=== PATIENT | female | born 1955 | race Asian ===

== ENCOUNTER 2018-07-17 17:15 | Emergency (ER) | payer OTHER ==
[~2018-07-17] VITALS: Ht 142.2 cm; Wt 38.6 kg
--- NOTE | 2018-07-17 17:18 | NUR ---
Placed in room 02 . Placed on clinical research monitor, blood pressure machine and pulse oximeter. To gown for exam. Side rails up.
[2018-07-17 17:19] VITALS: BP_SYST 137
[2018-07-17] MEDS ORDERED: NACL 0.9% 1,000 ML IV ONE (17:33)
[2018-07-17] MEDS ORDERED: MECLIZINE HCL 25 MG TABLET (ANITVERT) PO ONE (17:45)
--- NOTE | 2018-07-17 17:52 | NUR ---
Patient transported to radiology via gurney, accompanied by rad staff.
--- NOTE | 2018-07-17 17:54 | NUR ---
ER at bedside examining patient.
[2018-07-17 17:55] LABS: RED BLOOD CELL COUNT(AUTO) 4.04 MIL/uL (4.2-6.2); WHITE BLOOD COUNT (AUTO) 4.7 K/uL (4.8-10.8)
[2018-07-17 17:56] LABS: BASOPHILS % (AUTO) 1.9 % (0.0-2.0); EOSINOPHILS % (AUTO) 3.2 % (0.0-4.0); HEMATOCRIT 37.8 % (36-48); HEMOGLOBIN 12.4 g/dL (12.0-16.0); LYMPHOCYTES % (AUTO) 38.9 % (20.5-51.5); MEAN CORPUSCULAR HEMOGLOBIN 31 pg (27-31); MEAN CORPUSCULAR HGB CONC 33 % (32-36); MEAN CORPUSCULAR VOLUME 94 fL (79.0-98.0); MONOCYTES % (AUTO) 15.2 % (1.7-9.3); NEUTROPHILS % (AUTO) 40.8 % (40.0-70.0); PLATELET COUNT (AUTO) 243 K/uL (130-430); RED CELL DISTRIBUTION WIDTH 13.5 % (9.0-15.0)
[2018-07-17 17:57] LABS: BASOPHILS # (AUTO) 0.1 K/uL (0.0-0.2); EOSINOPHILS # (AUTO) 0.2 K/uL (0.0-0.4); LYMPHOCYTES # (AUTO) 1.8 K/uL (1.0-5.5); MONOCYTES # (AUTO) 0.7 K/uL (0.0-1.0); NEUTROPHILS # (AUTO) 1.9 K/uL (1.8-7.7)
--- NOTE | 2018-07-17 18:00 | NUR ---
Returned from radiology, back to [facility].
--- NOTE | 2018-07-17 18:02 | NUR ---
Pt refused medication and fluids Dr. Akhtar infprmed
[2018-07-17 18:04] LABS: ANION GAP 2 (5-15); CALCIUM 8.1 mg/dL (8.4-11.0); CHLORIDE 104 mmol/L (98-107); CREATININE 0.75 mg/dL (0.55-1.30); GLUCOSE 107 mg/dL (70-99); POTASSIUM 4.4 mmol/L (3.5-5.1); SODIUM SERUM 139 mmol/L (136-145); UREA NITROGEN, BLOOD 18 mg/dL (8-21)
[2018-07-17 18:05] LABS: GFR AFRICAN AMERICAN 100 mL/min (>90)
[2018-07-17 18:16] LABS: ALANINE AMINOTRANSFERASE 23 U/L (12-78); ALBUMIN 3.3 g/dL (3.4-4.8); ASPARTATE AMINOTRANSFERASE 22 U/L (10-37); TOTAL BILIRUBIN 0.2 mg/dL (0.0-1.0)
[2018-07-17 18:40] VITALS: BP_SYST 155
--- NOTE | 2018-07-17 18:40 | NUR ---
Patient given written and verbal discharge instructions and verbalizes understanding. ER MD discussed with patient the results and treatment provided. Patient in stable condition. ID arm band removed. IV catheter removed intact and dressing applied, no active bleeding. Rx of antivert given. Patient educated on pain management and to follow up with PMD. Pain Scale 0. Opportunity for questions provided and answered. Medication side effect fact sheet provided.
== END 2018-07-17 18:40 | disposition home or self-care (01) ==
LOC: SED 17:15
DX: H81.10 Benign paroxysmal vertigo, unspecified ear (principal); R03.0 Elevated blood-pressure reading, without diagnosis of hypertension; M19.90 Unspecified osteoarthritis, unspecified site
CPT/HCPCS: 36415; 70450-TC; 71045; 80053; 84484; 85025; 93005; 99284; J8597